=== PATIENT | female | born 1995 | race Hispanic/Latino ===

== ENCOUNTER 2024-01-07 17:04 | Day surgery (SDC) | payer BC ==
[2024-01-07 17:40] VITALS: BMI 48.7
[2024-01-07] MEDS ORDERED: hydrALAZINE 20 MG/ML VIAL SLOW IVP PRN (17:56)
[2024-01-07 18:29] LABS: #Monocytes 0.5 10x3/uL (0.0-1.1); #Neutrophils 7.1 10x3/uL (1.5-8.4); %Basophils 0.3 % (0.0-2.0); %Eosinophils 0.3 % (0.0-6.0); %Lymphocytes 15.8 % (18.0-47.0); %Monocytes 5.4 % (0.0-10.0); %Neutrophils 77.9 % (40.0-75.0); Hematocrit 31.5 % (34.9-44.5); Hemoglobin 10.2 g/dL (12.0-15.5); Mean Corpuscular HGB CONC 32.4 g/dL (32.0-36.0); Mean Corpuscular Hemoglobin 25.8 pg (27.0-33.0); Mean Corpuscular Volume 79.5 fl (81.6-98.3); Mean Platelet Volume 10.3 fl (7.4-10.4); Platelet Count 302 10x3/uL (150-450); RBC Distribution Width 14.6 % (11.5-14.5); Red Blood Cell (RBC) Count 3.96 10x6/uL (3.90-5.03); White Blood Cell (WBC) Count 9.1 10x3/uL (3.5-10.5)
[2024-01-07 18:44] LABS: ALT (SGPT) 13 U/L (8-55); AST (SGOT) 17 U/L (5-34); Albumin 3.1 g/dL (3.5-5.0); Alkaline Phosphatase 131 U/L (40-110); Anion Gap 13 mmol/L (10-20); BUN (Urea Nitrogen) 12 mg/dL (7.0-18.7); Bilirubin, Total 0.3 mg/dL (0.2-1.2); Calc. Creatinine Clearance 212 mL/min (70-130); Calcium 9.1 mg/dL (7.8-10.44); Carbon Dioxide 19 mmol/L (22-29); Chloride 107 mmol/L (98-107); Estimated GFR 117; Globulin 3.3 g/dL (2.4-3.5); Glucose 128 mg/dL (70-105); Potassium 3.5 mmol/L (3.5-5.1); Protein, Total 6.4 g/dL (6.0-8.3); Sodium 135 mmol/L (136-145)
== END 2024-01-07 20:55 | disposition home or self-care (01) ==
LOC: CSHLD/OP 17:04
PROVIDERS: ATTEND Obstetrics & Gynecology
DX: O99.891 Other specified diseases and conditions complicating pregnancy (principal); R03.0 Elevated blood-pressure reading, without diagnosis of hypertension; R10.11 Right upper quadrant pain; O99.343 Other mental disorders complicating pregnancy, third trimester; F41.9 Anxiety disorder, unspecified; O99.113 Other diseases of the blood and blood-forming organs and certain disorders involving the immune mechanism complicating pregnancy, third trimester; M32.9 Systemic lupus erythematosus, unspecified; O24.410 Gestational diabetes mellitus in pregnancy, diet controlled; Z79.84 Long term (current) use of oral hypoglycemic drugs; Z79.899 Other long term (current) drug therapy; Z3A.38 38 weeks gestation of pregnancy
CPT/HCPCS: 80053; 82570; 84156; 85025; 99283

== ENCOUNTER 2024-01-08 18:00 | Inpatient (IN) | payer BC ==
[~2024-01-08 18:00] MED LIST: Bupivacaine 0.25% HCL 30 ML VIAL ONE
[2024-01-08 19:20] VITALS: BMI 48.7
[2024-01-08] MEDS ORDERED: HYDROcodone/Acetaminophen 5/325 mg Tablet PO PRN ×2 (19:49)
[2024-01-08] MEDS ORDERED: Promethazine HCl 25 MG/ML VIAL IM PRN (19:49)
[2024-01-08] MEDS ORDERED: Diphenoxylate HCl/Atropine Tablet PO PRN ×2 (19:49)
[2024-01-08] MEDS ORDERED: Ondansetron PF 4 MG/2 ML Vial IVP PRN (19:49)
[2024-01-08] MEDS ORDERED: Tranexamic Acid 1,000 MG/10 ML VIAL IVP PRN (19:49)
[2024-01-08] MEDS ORDERED: Acetaminophen 500 MG TAB PO PRN (19:49)
[2024-01-08] MEDS ORDERED: fentaNYL 50 mcg/mL 1 mL Vial SLOW IVP PRN (19:49)
[2024-01-08] MEDS ORDERED: Ibuprofen 800 MG TAB PO PRN (19:49)
[2024-01-08] MEDS ORDERED: Misoprostol 200 MCG TAB PR PRN (19:49)
[2024-01-08] MEDS ORDERED: hydrALAZINE 20 MG/ML VIAL SLOW IVP PRN (19:49)
[2024-01-08] MEDS ORDERED: Carboprost 250 MCG/ML AMP IM PRN (19:49)
[2024-01-08] MEDS ORDERED: Lidocaine 1% (PF) 30 ML VIAL SC PRN (19:49)
[2024-01-08] MEDS ORDERED: Oxytocin 30 units/NS 500 ML 500 ML IV SCH (20:15)
[2024-01-08] MEDS: Lactated Ringer's 1,000 ML IV SCH (20:27)
[2024-01-08] MEDS: Penicillin G Potassium 5 MILL.UNITS in Sodium Chloride 0.9% 100 ML IVPB SCH (20:28)
[2024-01-08 20:33] LABS: Hematocrit 29.4 % (34.9-44.5); Hemoglobin 9.8 g/dL (12.0-15.5); Mean Corpuscular HGB CONC 33.3 g/dL (32.0-36.0); Mean Corpuscular Hemoglobin 26.3 pg (27.0-33.0); Mean Platelet Volume 10.7 fl (7.4-10.4); Platelet Count 292 10x3/uL (150-450); RBC Distribution Width 14.6 % (11.5-14.5); Red Blood Cell (RBC) Count 3.72 10x6/uL (3.90-5.03); White Blood Cell (WBC) Count 9.3 10x3/uL (3.5-10.5)
[2024-01-08] MEDS: Misoprostol 100 MCG TAB VAG SCH (20:58)
[2024-01-08 21:13] LABS: HBSAg Index 0.19 S/CO (0-0.99); Hep B Surf Ag - L&D Non-Reactive S/CO (NonReactive)
[2024-01-08 21:14] LABS: Syphilis Antibody Nonreactive (Nonreactive); Syphilis Antibody Index 0.05 S/CO (<1.00 Non-Reactive)
[2024-01-09] MEDS: Penicillin G 2.5 MILL.units 2.5 MILL.UNITS in Premix 1 BAG IVPB SCH (00:37)
[2024-01-09] MEDS: Oxytocin 30 units/NS 500 ML 500 ML IV SCH (04:03)
[2024-01-09] MEDS: fentaNYL/Ropivacaine Epidural 100 ML ONE (10:00)
[2024-01-09] MEDS ORDERED: Ondansetron PF 4 MG/2 ML Vial IVP PRN ×2 (10:21→18:28)
[2024-01-09] MEDS ORDERED: diphenhydrAMINE 50 MG/ML VIAL IVP PRN (10:21)
[2024-01-09] MEDS ORDERED: Naloxone HCl 0.4 mg/ml Vial IVP PRN ×2 (10:21)
[2024-01-09] MEDS ORDERED: Moisturizing Cream (Eucerin) 113 GM JAR TOP PRN (10:21)
[2024-01-09] MEDS ORDERED: ePHEDrine Sulfate 50 MG/10 ML VIAL SLOW IVP PRN (10:21)
[2024-01-09] MEDS ORDERED: Promethazine HCl 25 MG/ML VIAL IM PRN (10:21)
[2024-01-09] MEDS ORDERED: Lactated Ringer's 500 ML IV PRN (10:21)
[2024-01-09] MEDS ORDERED: fentaNYL 2 mcg/Ropivacaine 0.2% Epidural 100 ML CADD EPIDURAL SCH (10:30)
[2024-01-09] MEDS ORDERED: Communication Order-Pharmacy FS SCH (10:30)
[2024-01-09] MEDS ORDERED: hydrALAZINE 20 MG/ML VIAL SLOW IVP PRN (18:28)
[2024-01-09] MEDS ORDERED: Misoprostol 200 MCG TAB VAG PRN (18:28)
[2024-01-09] MEDS ORDERED: Methylergonovine 0.2 MG/ML VIAL IM PRN (18:28)
[2024-01-09] MEDS ORDERED: Lanolin Ointment 7 GM TUBE TOP PRN (18:28)
[2024-01-09] MEDS ORDERED: Boostrix 0.5 ML (Tdap) VIAL (>/=7 yrs of age) IM ONE (18:28)
[2024-01-09] MEDS ORDERED: Milk Of Magnesia 30 ML UDCUP PO PRN (18:28)
[2024-01-09] MEDS ORDERED: Bisacodyl 10 MG SUPP PR PRN (18:28)
[2024-01-09] MEDS ORDERED: Preparation H Ointment 28 GM TUBE PR PRN (18:28)
[2024-01-09] MEDS ORDERED: Oxytocin 30 units/NS 500 ML 500 ML IV SCH (18:30)
[2024-01-09] MEDS: PROPOFOL 0 ML ONE (21:31)
[2024-01-09] MEDS: Lidocaine 2% MPF 10 ML AMP (For Epidural Use) ONE (21:31)
[2024-01-09] MEDS: PHENYLEPHRINE-NS 100 MCG/ML 10 ML SYRINGE ONE (21:32)
[2024-01-09] MEDS: Ketorolac Tromethamine 30 MG (1 mL) VIAL ONE ×2 (21:32→23:04)
[2024-01-09] MEDS: Lidocaine 1% PF 10 ML AMP ONE (21:32)
[2024-01-09] MEDS: Lidocaine 2% PF 100 mg/5 ml Syringe ONE (21:32)
[2024-01-09] MEDS: Sodium Chloride 0.9% 10 ML ONE (21:32)
[2024-01-09] MEDS: Misoprostol 200 MCG TAB ONE (21:32)
[2024-01-09] MEDS: Methylergonovine 0.2 MG/ML VIAL ONE (21:32)
[2024-01-09] MEDS: Ibuprofen 800 MG TAB PO SCH (22:40)
[2024-01-09] MEDS: Docusate 100 MG CAP PO SCH (22:40)
[2024-01-10] MEDS: Prenatal Vitamin 1 TAB PO SCH (08:43)
[2024-01-10] MEDS: Acetaminophen 325 MG TAB PO PRN (08:43)
[2024-01-10] MEDS: Ferrous Sulfate 325 MG TAB PO SCH (08:43)
[2024-01-10] MEDS: Benzocaine-Menthol 82.5 ML CAN TOP PRN (08:43)
[2024-01-10] MEDS: HYDROcodone/Acetaminophen 5/325 mg Tablet PO PRN (10:58)
[2024-01-10 19:14] LABS: Hemoglobin 7.5 g/dL (12.0-15.5)
[2024-01-11 12:25] VITALS: BP 97/53; TEMP 98.7
== END 2024-01-11 15:35 | disposition home or self-care (01) | DRG 807 ==
LOC: CSHLD 19:03 → CSHPP 01-09 21:05
PROVIDERS: ADMIT Obstetrics & Gynecology; ATTEND Obstetrics & Gynecology
PROC: 10D07Z3 Extraction of Products of Conception, Low Forceps, Via Natural or Artificial Opening (ICD-10-PCS; principal; 2024-01-09)
PROC: 0KQM0ZZ Repair Perineum Muscle, Open Approach (ICD-10-PCS; 2024-01-09)
PROC: 3E0P7VZ Introduction of Hormone into Female Reproductive, Via Natural or Artificial Opening (ICD-10-PCS; 2024-01-09)
PROC: 3E033XZ Introduction of Vasopressor into Peripheral Vein, Percutaneous Approach (ICD-10-PCS; 2024-01-09)
DX: O99.214 Obesity complicating childbirth (principal); Z37.0 Single live birth; O16.4 Unspecified maternal hypertension, complicating childbirth; Z3A.38 38 weeks gestation of pregnancy; O24.429 Gestational diabetes mellitus in childbirth, unspecified control; O70.1 Second degree perineal laceration during delivery; O99.02 Anemia complicating childbirth; O99.824 Streptococcus B carrier state complicating childbirth; O32.8XX0 Maternal care for other malpresentation of fetus, not applicable or unspecified; R03.0 Elevated blood-pressure reading, without diagnosis of hypertension; R10.11 Right upper quadrant pain; F41.9 Anxiety disorder, unspecified; M32.9 Systemic lupus erythematosus, unspecified; Z79.84 Long term (current) use of oral hypoglycemic drugs; Z79.899 Other long term (current) drug therapy; O99.344 Other mental disorders complicating childbirth
CPT/HCPCS: 36415; 36416; 51702; 80053; 82570; 84156; 85014; 85018; 85025; 85027; 86780; 86850; 86900; 86901; 87340; 99283; J0665; J1885; J2001; J2540; J2590; J2704; J3490; J7120